=== PATIENT | female | born 1960 | race Caucasian/White ===

== ENCOUNTER → 2019-05-20 | Day surgery (SDC) | payer MEDICARE ==
[~2019-05-20] MED LIST: AMLO5TAB10 PO; AZIT250T PO; CIPR500T PO; IV RINGERS,LACTATED 1000ML 1,000 ML IV SCH; LOSA100T14 PO; MONT10TA49 PO; POTA10TA12 PO; PRED2.5T PO; PROPOFOL 20 ML IV ONE; SODIUM PHOSPHATES 19/7GM 133 ML ENEMA. PR ONE
[2019-05-20 08:51] VITALS: BP 156/97
--- NOTE | 2019-05-21 16:06 | PATHOLOGY ---
[facility] Accession Number: [id number] . 01 Material submitted: . colon - SIGMOID POLYP. Modifiers: sigmoid . 01 Clinical history: . CRC screen . 02 Diagnosis: Colon biopsy, sigmoid polyp: - Hyperplastic polyp. (JPM:mercedes; 05/21/2019) QMS/05/21/2019 . 02 Comment: Sections of the sigmoid colon biopsy reveal a hyperplastic polyp showing focal coagulation artifact. There are no adenomatous changes or evidence of malignancy. (JPM:mercedes; 05/21/2019) . 02 Electronically signed: . Elliott Keys MD, Pathologist NPI- [id number] . 01 Gross description: . Received in formalin labeled "Tolliver, Lulú, sigmoid polyp," is a 0.7 x 0.4 x 0.4 cm polypoid piece of becerril soft tissue. The margin is inked and the tissue is sectioned perpendicular to the margin and submitted entirely in cassette A1. (TSD; 05/20/2019) TOB/TOB . 02 Pathologist provided ICD-10: K63.5 . 02 CPT . 860924 Specimen Comment: A courtesy copy of this report has been sent to Specimen Comment: [phone], . Specimen Comment: Report sent to / DR SERRANO Performed at: 01 [facility] [address] [address], [place] [id number] MD Pa Trevino MD Phone: [phone] Performed at: 02 [facility] [address] [place], [place] [id number] MD Elliott Keys MD Phone: [phone]
== END ==
LOC: SURG 07:09
PROVIDERS: ATTEND Internal Medicine Gastroenterology
DX: Z12.11 Encounter for screening for malignant neoplasm of colon (principal); K63.5 Polyp of colon; K57.30 Diverticulosis of large intestine without perforation or abscess without bleeding; K64.0 First degree hemorrhoids; F15.90 Other stimulant use, unspecified, uncomplicated; Z88.6 Allergy status to analgesic agent
CPT/HCPCS: 45385; 88305; J2704; 45380